=== PATIENT | male | born 1980 | race Caucasian/White ===

== ENCOUNTER 2017-06-01 12:58 | Emergency (ER) | payer OTHER ==
[~2017-06-01] VITALS: Ht 175.3 cm; Wt 61.3 kg
[~2017-06-01 12:58] MED LIST: AMOXICILLIN875 MG PO; AUGMENTIN875 MG PO; CLEOCIN300 MG PO; FIORICET 50-301 EACH PO; FIORICET WI1 CAPSULE PO; HYDROCODON-ACE1 EAC7 PO; NAPROSYN500 MG PO; VALIUM5 MG PO
[2017-06-01 14:17] LABS: HEMATOCRIT 43.1 % (38.0-50.0); HEMOGLOBIN 15.2 G/DL (12.5-16.6); MCH 27.9 PG (29.0-34.0); MCHC 35.3 G/DL (30.0-36.0); MCV 79.2 FL (86-99); PLATELET COUNT 247 K/uL (156-360); RBC DIS.WIDTH-CV 15.7 % (11.8-14.6); RBC DIS.WIDTH-SD 43.9 % (39-53); RED BLOOD COUNT 5.44 M/uL (4.00-5.50); WHITE BLOOD COUNT 6.5 K/uL (4.1-10.2)
[2017-06-01 14:26] LABS: CHLORIDE 110 mEq/L (99-109); SODIUM 141 mEq/L (136-147)
[2017-06-01 14:27] LABS: GLUCOSE 117 mg/dL (70-99)
[2017-06-01 14:30] LABS: SERUM ETHYL ALCOHOL < 10 mg/dL
[2017-06-01 14:31] LABS: CREATININE 0.7 mg/dL (0.6-1.3); GFR ESTIMATE (CALCULATED) > 59 mL/min/ (58.99-99999)
[2017-06-01 14:32] LABS: UREA NITROGEN (BUN) 21 mg/dL (9-23)
[2017-06-01 15:44] VITALS: BP 176/90
== END 2017-06-01 15:44 | disposition home or self-care (01) ==
LOC: EME 12:58
DX: F39 Unspecified mood [affective] disorder (principal); F12.20 Cannabis dependence, uncomplicated; Z04.6 Encounter for general psychiatric examination, requested by authority; I10 Essential (primary) hypertension; F17.200 Nicotine dependence, unspecified, uncomplicated
CPT/HCPCS: 80048; 85027; 90837; 99281; 99285; G0480